=== PATIENT | male | born 1955 | race Caucasian/White ===

== ENCOUNTER → 2019-02-07 10:43 | Day surgery (SDC) | payer BC ==
[~2019-02-07 10:43] MED LIST: Acetaminophen TAB* 325 MG PO PRN; Buffered Lidocaine 1% SYRIN* 1 ML/SYRINGE INTRADERM ONE; Bupivacaine 0.25% SDV PF* 10 ML VIAL INJ ONE; DiMENhydriNATE IV* 50 MG/ML VIAL IV PUSH PRN; Famotidine IV* 10 MG/ML 2 ML (20 mg) IV ONE; Famotidine IV* 10 MG/ML 2 ML (20 mg) ONE; Ketorolac INJ* 30 MG/ML 1 ML VIAL ONE; Lactated Ringers 1000 ML Bag* 1,000 ML IV SCH; Lidocaine 2% PF * 5 ML VIAL ONE; Midazolam* 1 MG/ML 5 ML VIAL (5 MG) ONE; Naloxone* 0.4 MG/ML 1 ML VIAL IV PRN; Ondansetron INJ* 2 MG/ML VIAL ONE; Propofol* 10 MG/ML 20 ML BTL ONE; fentaNYL* 50 MCG/ML 2 ML VIAL (100 MCG VIAL) ONE
[2019-02-07 13:51] VITALS: BP 163/105
--- NOTE | 2019-02-08 00:46 | OP ---
DATE OF OPERATION: 02/07/19 - [facility] DATE OF : 55 SURGEON: Narayan West MD CHAINMAN: JENNIFER Jefferson ANESTHESIOLOGIST: Dr. Avila ANESTHESIA: Local MAC. PRE-OP DIAGNOSIS: Left dorsal thumb soft tissue mass. POST-OP DIAGNOSIS: Left dorsal thumb soft tissue mass. OPERATIVE PROCEDURE: Excision of left thumb dorsal soft tissue mass. INDICATIONS: Low has the mass over the dorsum of left thumb. There is some deformation of the nail plate. We had talked about risks and benefits. He wanted to have it excised. He also had some carpal tunnel symptoms, but he did not bring those up to me until today. He asked me if we could do a carpal tunnel release. I told him I need to see him in the office before we were to do that. ESTIMATED BLOOD LOSS: 1 mL. COMPLICATIONS: None. FINDINGS: See above and below. DESCRIPTION OF PROCEDURE: Low was seen in the preoperative holding area. The correct site, side, and procedure were identified. We came back to the operating room where I performed a digital block with 0.25% plain Marcaine. The arm was then prepped and draped in the usual fashion and time-out was performed. The arm was exsanguinated with the Esmarch and the tourniquet was inflated to 250 mmHg. I went ahead and made an incision over the dorsum of the thumb IP joint which is T'd back on the radial aspect. I went ahead and developed the plane between the skin and the mass. This was excised in a full marginal mass excision. I was sitting just distal to the attachment of the terminal extensor tendon that was then developed off of the paratenon over the terminal extensor tendon. The mass was fully excised and handed off as specimen. I then used the Bovie and cauterized area near the distal aspect of the terminal extensor tendon in the central portion where it looked like it might have emanated from and also the interval between the terminal extensor tendon and the radial collateral ligament where the joint capsule was there. Once that was all cauterized and everything was looking good, we irrigated out the wounds. The skin was closed with 4-0 nylon suture and soft dressings were applied. Tourniquet was deflated and he was taken to the recovery room in stable condition. [id number]/[facility] #: [id number] [facility] HOSPITALJhon
== END | disposition home or self-care (01) ==
LOC: OR 10:43
PROVIDERS: ATTEND Orthopaedic Surgery Hand Surgery
DX: M67.442 Ganglion, left hand (principal); I10 Essential (primary) hypertension; M19.90 Unspecified osteoarthritis, unspecified site; Z87.891 Personal history of nicotine dependence; Z88.0 Allergy status to penicillin; Z91.030 Bee allergy status; Z91.040 Latex allergy status
CPT/HCPCS: 88304; J1885; J2250; J2405; J2704; J3010; J3490